=== PATIENT | female | born 1970 | race African-American/Black ===

== ENCOUNTER 2020-06-25 22:38 | Emergency (ER) | payer BC ==
[~2020-06-25] VITALS: Ht 167.6 cm; Wt 91.2 kg
[2020-06-25 23:37] LABS: ABSOLUTE NEUTROPHILS 3.7 thou/uL (1.4-8.2); BASOPHILS 1.1 % (0.0-2.0); EOSINOPHILS 1.6 % (0.0-3.0); HEMATOCRIT 39.1 % (37.0-47.0); LYMPHOCYTES 40.2 % (24.0-44.0); MCH 32.1 pg (26.0-34.0); MCHC 33.3 g/dL (28.0-37.0); MCV 96.4 fL (80.0-100.0); MONOCYTES 7.9 % (1.0-8.0); PLATELET COUNT 182 thou/uL (150-400); POLYS 49.2 % (36.0-66.0); RBC 4.06 mil/uL (4.20-5.00); WBC 7.5 thou/uL (4.0-11.0)
[2020-06-25 23:50] LABS: ANION GAP 11 mmol/L (7-16); BUN 11 mg/dL (7-18); CALCIUM 8.7 mg/dL (8.5-10.1); CHLORIDE 106 mmol/L (98-107); CO2 23 mmol/L (21-32); GLUCOSE 93 mg/dL (74-106); POTASSIUM 3.9 mmol/L (3.5-5.1); SODIUM 140 mmol/L (136-145)
[2020-06-26] LABS: URINE BILIRUBIN NEGATIVE (Negative); URINE BLOOD 1+ (Negative); URINE CLARITY CLEAR; URINE COLOR YELLOW; URINE GLUCOSE-RANDOM* NEGATIVE (Negative); URINE KETONES TRACE (Negative); URINE LEUKOCYTES-REFLEX TRACE (Negative); URINE NITRITE-REFLEX NEGATIVE (Negative); URINE PROTEIN (DIPSTICK) NEGATIVE (Negative); URINE SPECIFIC GRAVITY 1.025 (1.005-1.035); URINE UROBILINOGEN 0.2 E.U./dl (0.2-1.0)
[2020-06-26 00:05] LABS: ALBUMIN 3.5 g/dL (3.4-5.0); DIRECT BILIRUBIN 0.2 mg/dL (<0.1-0.2); MAGNESIUM 2.2 mg/dL (1.8-2.4); PHOSPHORUS 3.2 mg/dL (2.5-4.9); SGOT 17 U/L (15-37); SGPT 15 U/L (30-65); TOTAL BILIRUBIN 0.4 mg/dL (0.2-1.0); TOTAL PROTEIN 8.1 g/dL (6.4-8.2); TROPONIN-I <0.06 ng/mL (<0.06)
[2020-06-26 00:07] LABS: CASTS None Seen /LPF (None Seen); MUCUS 0-3 Light strn/LPF (None Seen); SQUAMOUS 0-3 Few /LPF (0-3)
[2020-06-26 00:08] LABS: BACTERIA-REFLEX None Seen /HPF (None Seen); CRYSTALS None Seen /LPF (None Seen); URINE RBC 0-2 Rare /HPF (0-2); URINE WBC-REFLEX 0-5 Rare /HPF (0-5)
[2020-06-26 00:18] LABS: HCO3 20.2 mmol/L (22.0-26.0); PCO2 34.3 mmHg (35.0-45.0); PO2 87.4 mmHg (80.0-100.0); pH 7.388 (7.360-7.450); sO2 96.6 % (92.0-98.0)
[2020-06-26 01:32] LABS: LARGE PLATELETS OCCASIONAL
[2020-06-26] MEDS ORDERED: OXYCODONE HCL5 MG PO (01:58)
[2020-06-26] MEDS ORDERED: ATIVAN0.5 M1 PO (01:58)
[2020-06-26] MEDS ORDERED: NAPROSYN500 MG PO (01:58)
[2020-06-26 02:05] VITALS: BP 120/62
--- NOTE | 2020-06-28 07:18 | EKG ---
[place] [address] [email or web address] [place] [address] ELECTROCARDIOGRAM REPORT Name: YUSUF MONAHAN [id number] Admission: 06/25/20 Attend Phys: Discharge: 06/26/20 Date of : 66 Report #: [id number] [facility] ED Test Date: 2020-06-26 Test Time: 00:01:05 Pat Name: YUSUF ORDOÑEZ Department: Room: Gender: F Instructional Support Technician: MPARSeamus : 1970 Requested By: Cameron Wilson Order Number: [id number] MD: Greyson Carreon Measurements Intervals [place] Rate: 100 P: 61 [place]: 127 QRS: 38 QRSD: 76 T: 5 QT: 352 QTc: 454 Interpretive Statements Sinus tachycardia Low voltage, precordial leads RSR' in V1 or V2, probably normal variant Borderline T abnormalities, anterior leads No previous ECG available for comparison Electronically Signed On 06-28-2020 7:18:43 CDT by Greyson Carreon [email or web address] <ELECTRONICALLY SIGNED> By: Greyson Carreon MD, [facility] 06/28/20717 0001 0001 Greyson Carreon MD, FACC /EPI
== END 2020-06-26 02:11 | disposition home or self-care (01) ==
LOC: ER 22:38
PROVIDERS: Emergency Medicine
DX: M54.9 Dorsalgia, unspecified (principal); R06.00 Dyspnea, unspecified; R56.9 Unspecified convulsions; Z88.8 Allergy status to other drugs, medicaments and biological substances